=== PATIENT | male | born 1945 | race Caucasian/White ===

== ENCOUNTER → 2016-05-07 | Outpatient (CLI) | payer MEDICARE, BC ==
[~2016-05-07] MED LIST: ATOR10TA23; LISI20TA11 PO; METF500T3 PO
--- NOTE | 2016-05-07 14:38 | RADRPT ---
PROCEDURE: XR pelvis / bilateral hip. CLINICAL INDICATION: Hip pain TECHNIQUE: AP pelvis/AP and lateral right and left hip view performed. COMPARISON: 10/12/2010 FINDINGS: There is a left total hip replacement. There is no evidence of loosening of the prosthesis. There is mild right hip osteoarthrosis. This is associated with joint space narrowing, subchondral s clerosis and osteophytosis. There is moderate to severe L4-S1 degenerative disk disease There is nor mal osseous mineralization. No fractures or osseous lesions are identified. The soft tissues are u nremarkable. IMPRESSION: Left total hip replacement. Mild right hip osteoarthrosis. Moderate to severe L4-S1 degenerative disk disease RPTAT: HGDB .Pedro Patton MD, MD Date Time Electronically viewed and signed by .Pedro Patton MD, on 05/07/2016 14:38 .B/
== END | disposition home or self-care (01) ==
LOC: HKI 13:50
PROVIDERS: ATTEND Orthopaedic Surgery
DX: M17.0 Bilateral primary osteoarthritis of knee (principal); M25.551 Pain in right hip; M51.36 Other intervertebral disc degeneration, lumbar region; M54.16 Radiculopathy, lumbar region; Z96.642 Presence of left artificial hip joint
CPT/HCPCS: 20610; 73523; G0463; J7327

== ENCOUNTER → 2016-10-31 | Outpatient (CLI) | payer BC, MEDICARE ==
--- NOTE | 2016-10-31 10:04 | PN ---
Date/Time of Note Date/Time of Note DATE: 10/31/16 TIME: 09:56 Outpatient Progress Note HPI The patient presents today for a follow-up evaluation on his bilateral knees. We last saw him back in April, at which time he had bilateral Monovisc injections. They are still providing him some relief of his arthritis discomfort, although he is having some diminishing returns. He is not prepared to proceed with any type of surgical intervention at this time. He has had no adverse reactions to his previous injections. He is here today for bilateral injections to his knees. Physical Exam On exam today, he is alert oriented 4, and in no acute distress. He walks with normal gait. Exam of bilateral knees demonstrates no effusion. He has some mild tenderness along the medial lateral patellar facets bilaterally. He has 2+ patellofemoral crepitus. Varus and valgus forces are stable. Compartments otherwise soft. He is neurovascularly intact distally. Allergies Coded Allergies: No Known Allergy (Verified , 10/12/10) Assessment/Plan Assessment: Bilateral knee osteoarthritis Plan: After informed consent from the patient, he underwent bilateral Monovisc injections today. He tolerated the procedure well. He understands that Dr. Damon is leaving the practice and moving to [facility]. He is welcome to follow up at [facility] or here in the office on an as needed basis. I Procedure: The procedure was fully explained to the patient, and informed consent was obtained prior to the start of the procedure. The area was prepped and draped in sterile fashion using Betadine. Ethyl chloride was used to anesthetize the superolateral aspect of bilateral knees, and 4 cc of Monovisc was injected intra-articularly. A sterile dressing was then applied. The patient tolerated the procedure well. All questions and concerns were addressed at the time of the procedure. Medications Home Meds Reported Medications Metformin Hcl* (Metformin Hcl* ER) 500 Mg Tab.sr.24h, 500 MG PO 1 Q AM & 3 TABS Q PM, 0 Refills 10/12/10 Lisinopril* (Lisinopril*) 20 Mg Tablet, 20 MG PO DAILY 10/12/10 Atorvastatin (Lipitor) 10 Mg Tablet, DAILY 10/12/10 NAYELI EDOUARD PA-C Oct 31, 2016 10:03 NAYELI EDOUARD PA-C Oct 31, 2016 10:03
== END | disposition home or self-care (01) ==
LOC: HKI 08:44
PROVIDERS: ATTEND Orthopaedic Surgery
DX: M17.0 Bilateral primary osteoarthritis of knee (principal); E11.9 Type 2 diabetes mellitus without complications; Z79.84 Long term (current) use of oral hypoglycemic drugs
CPT/HCPCS: 20610; J7327

== ENCOUNTER 2018-10-09 17:28 | Emergency (ER) | payer BC, MEDICARE ==
[~2018-10-09] VITALS: Ht 170.2 cm; Wt 80.0 kg
[~2018-10-09 17:28] MED LIST changes: +CYCL10TA7 PO; +DICL100G37 TOP; +LISI-471 PO; -LISI20TA11 PO; +NAPR-985 PO
[2018-10-09 17:42] VITALS: BP 136/80; PULSE 65; RESP 18; Ht 170.2 cm; Wt 80.0 kg
--- NOTE | 2018-10-09 18:23 | ERD ---
ER Documentation Chief Complaint Chief Complaint BACK PAIN HPI 73-year-old male presents to ED complaining of left lower back pain x1 day. Patient states that he was bending over yesterday and his back suddenly started hurting. He states that the pain is worse with movement and better with rest. He states the pain is a sharp pain and rates as 8 out of 10 pain at its worse. Patient has been taking Aleve which helps reduce his pain symptoms. Patient denies history of similar events. Patient reports a history of sciatica however this does not feel like his sciatica. Patient also has a past medical history of hypertension, diabetes type 2, hyperlipidemia. ROS All systems reviewed and are negative except as per history of present illness. Medications Home Meds Active Scripts Cyclobenzaprine Hcl* (Cyclobenzaprine Hcl*) 10 Mg Tablet, 10 MG PO TID, #15 TAB Prov:KEYLA AREVALO PA-C 10/09/18 Naproxen* (Naprosyn*) 500 Mg Tablet, 500 MG PO BID PRN for PAIN AND/OR INFLAMMATION, #30 TAB Prov:KEYLA AREVALO PA-C 10/09/18 Diclofenac Sodium* (Voltaren* Gel) 1% -100 Gm Gel, 4 GM TOP QID, #1 TUB Prov:KEYLA AREVALO PA-C 10/09/18 Reported Medications Metformin Hcl* (Metformin Hcl* ER) 500 Mg Tab.sr.24h, 500 MG PO 1 Q AM & 3 TABS Q PM, 0 Refills 10/12/10 Lisinopril* (Lisinopril*) 20 Mg Tablet, 20 MG PO DAILY 10/12/10 Atorvastatin (Lipitor) 10 Mg Tablet, DAILY 10/12/10 Allergies Allergies: Coded Allergies: No Known Allergy (Verified , 10/12/10) PMhx/Soc History of Surgery: Yes (L HIP REPLACEMENT, right shoulder sx,hernia repair,Bilateral arms rotator c) Anesthesia Reaction: No Hx Neurological Disorder: No Hx Respiratory Disorders: No Hx Cardiac Disorders: Yes (HTN) Hx Psychiatric Problems: No Hx Miscellaneous Medical Probl: Yes (HIP REPLACMENT, SHOULDER SURGER, DIABETES, HIGH CHOLESTEROL) Hx Alcohol Use: No Hx Substance Use: No Hx Tobacco Use: No Smoking Status: Never smoker FmHx Family History: No diabetes Physical Exam Vitals Vital Signs Date Temp Pulse Resp B/P (MAP) Pulse Ox O2 O2 Flow FiO2 Time Delivery Rate 10/09/18 98.5 65 18 136/80 99 17:42 (98) Physical Exam Const: No acute distress Head: Atraumatic Neck: Full range of motion Resp: Clear to auscultation bilaterally Cardio: Regular rate and rhythm, Abd: Soft, non tender, non distended. Skin: No petechiae or rashes Back: Localized tenderness to the left lower back Neur: Awake and alert Psych: Normal Mood and Affect Procedures/MDM ED COURSE: The patient was stable throughout ED course. I kept the patient informed of laboratory and diagnostic imaging results throughout the ED course. MEDICATIONS GIVEN: [None.] Pt denies wanting medication in ED MEDICAL DECISION MAKING: Patient is a 73-year-old male complaining of left lower back pain x1 day. I have low suspicion for AAA, CAUDA EQUINA SYNDROME, CORD COMPRESSION, INFILTRATIVE, INFECTIOUS ETIOLOGY, EPIDURAL ABSCESS, FRACTURE. Physical exam was unremarkable except for localized tenderness to the left lower back. Patient states she took Advil before coming to the ED which helps alleviate his pain. Patient was able to get out of the wheelchair and walk around the room without much pain. At this time I think this is a musculos keletal issue and that the patient is suffering from a muscle strain. Patient was discharged with the medications listed below and told to follow-up with primary care. Vital signs were reviewed. Patient is afebrile. Patient was not hypoxic. Patient was hemodynamically stable. Patient was told to follow up with primary care for further care and management. PRESCRIPTION: Voltaren gel, naproxen, Flexeril DISCHARGE: At this time, patient is stable for discharge and outpatient management. I have instructed the patient to follow-up with their primary care physician in 1-2 days. I have discussed with the patient the possibility of needing to see a specialist for further workup and imaging studies if symptoms persist. I have instructed the patient to promptly return to the ER for any new or worsening symptoms including increased pain, fever, nausea, vomiting, weakness or LOC. The patient expressed understanding of and agreement with this plan. All questions were answered. Home care instructions were provided. Disclaimer: Inadvertent spelling and grammatical errors are likely due to EHR/dictation software use and do not reflect on the overall quality of patient care. Also, please note that the electronic time recorded on this note does not necessarily reflect the actual time of the patient encounter. Departure Diagnosis: Primary Impression: Muscle strain Condition: Fair Patient Instructions: Muscle Spasm Referrals: [facility] YOU HAVE RECEIVED A MEDICAL SCREENING EXAM AND THE RESULTS INDICATE THAT YOU DO NOT HAVE A CONDITION THAT REQUIRES URGENT TREATMENT IN THE EMERGENCY DEPARTMENT. FURTHER EVALUATION AND TREATMENT OF YOUR CONDITION CAN WAIT UNTIL YOU ARE SEEN IN YOUR DOCTORS OFFICE WITHIN THE NEXT 1-2 DAYS. IT IS YOUR RESPONSIBILITY TO MAKE AN APPOINTMENT FOR FOLOW-UP CARE. IF YOU HAVE A PRIMARY DOCTOR --you should call your primary doctor and schedule an appointment IF YOU DO NOT HAVE A PRIMARY DOCTOR YOU CAN CALL OUR PHYSICIAN REFERRAL HOTLINE AT IF YOU CAN NOT AFFORD TO SEE A PHYSICIAN YOU CAN CHOSE FROM THE FOLLOWING [facility] [address] [facility]. [facility] [address] [facility]. [facility] [address] [facility] [address] [facility] [facility] [address] [facility]. [facility] [address] [facility]. [facility] YOU HAVE RECEIVED A MEDICAL SCREENING EXAM AND THE RESULTS INDICATE THAT YOU DO NOT HAVE A CONDITION THAT REQUIRES URGENT TREATMENT IN THE EMERGENCY DEPARTMENT. FURTHER EVALUATION AND TREATMENT OF YOUR CONDITION CAN WAIT UNTIL YOU ARE SEEN IN YOUR DOCTORS OFFICE WITHIN THE NEXT 1-2 DAYS. IT IS YOUR RESPONSIBILITY TO MAKE AN APPOINTMENT FOR FOLOW-UP CARE. IF YOU HAVE A PRIMARY DOCTOR --you should call your primary doctor and schedule and appointment IF YOU DO NOT HAVE A PRIMARY DOCTOR YOU CAN CALL OUR PHYSICIAN REFERRAL HOTLINE AT . IF YOU CAN NOT AFFORD TO SEE A PHYSICIAN YOU CAN CHOSE FROM THE FOLLOWING ON LICENSE OF [facility] INSTITUTIONS: [facility] [address] [place] [address] [facility] [address] [place] [address] [facility] [address] [place] [address] Additional Instructions: Call your primary care doctor TOMORROW for an appointment during the next 1-2 d ays.See the doctor sooner or return here if your condition worsens before your appointment time. KEYLA AREVALO PA-C Oct 09, 2018 18:23
== END 2018-10-09 18:38 | disposition home or self-care (01) ==
LOC: FTE 17:28
DX: S39.012A Strain of muscle, fascia and tendon of lower back, initial encounter (principal); I10 Essential (primary) hypertension; E11.9 Type 2 diabetes mellitus without complications; X50.1XXA Overexertion from prolonged static or awkward postures, initial encounter; Y92.9 Unspecified place or not applicable; Z79.84 Long term (current) use of oral hypoglycemic drugs; Z96.642 Presence of left artificial hip joint
CPT/HCPCS: 99283